=== PATIENT | female | born 1985 | race Caucasian/White ===

== ENCOUNTER 2018-12-24 03:00 | Inpatient (IN) ==
[2018-12-24] MEDS ORDERED: Acetaminophen 325 MG TABLET PO PRN (03:14)
[2018-12-24] MEDS ORDERED: *HR* LORazepam 2 MG/ML VIAL IM PRN (03:14)
[2018-12-24] MEDS ORDERED: Haloperidol Lactate 5 MG/ML VIAL IM PRN (03:14)
[2018-12-24] MEDS ORDERED: traZODone 50 MG TABLET PO PRN (03:14)
[2018-12-24] MEDS ORDERED: Mag Hydrox/Al Hydrox/Simeth 30 ML UDC PO PRN (03:14)
[2018-12-24] MEDS ORDERED: *HR* LORazepam 1 MG TABLET PO PRN (03:14)
[2018-12-24] MEDS ORDERED: MOM Conc 10 ML UD.LIQ PO PRN (03:14)
[2018-12-24] MEDS: Nicotine 21 MG PATCH.TD24 TD SCH (10:49)
[2018-12-24] MEDS: BuPROPion XL (24 HR) 150 MG TABLET PO SCH (11:38)
[2018-12-24] MEDS: Venlafaxine XR (24 HR) 37.5 MG CAP.ER.24H PO SCH (11:38)
[2018-12-24] MEDS: clonazePAM 0.5 MG TABLET PO PRN (11:39)
[2018-12-24] MEDS: hydrOXYzine pamoate 25 MG CAPSULE PO PRN ×2 (17:01→23:01)
[2018-12-24] MEDS: MAVYRET PO SCH (18:59)
[2018-12-25] MEDS: clonazePAM 0.5 MG TABLET PO PRN ×3 (00:34→23:28)
[2018-12-25] MEDS ORDERED: MAVYRET PO SCH (09:00)
[2018-12-25] MEDS: BuPROPion XL (24 HR) 150 MG TABLET PO SCH (09:34)
[2018-12-25] MEDS: MAVYRET PO SCH (09:36)
[2018-12-25] MEDS: Nicotine 21 MG PATCH.TD24 TD SCH (09:37)
[2018-12-25] MEDS: lamoTRIgine 100 MG TABLET PO SCH (12:32)
[2018-12-25] MEDS: hydrOXYzine pamoate 25 MG CAPSULE PO PRN (23:28)
[2018-12-26] MEDS: Venlafaxine XR (24 HR) 37.5 MG CAP.ER.24H PO SCH (08:47)
[2018-12-26] MEDS: BuPROPion XL (24 HR) 150 MG TABLET PO SCH (08:47)
[2018-12-26] MEDS: lamoTRIgine 100 MG TABLET PO SCH (08:47)
[2018-12-26] MEDS: MAVYRET PO SCH (08:48)
[2018-12-26] MEDS: Nicotine 21 MG PATCH.TD24 TD SCH (08:49)
[2018-12-26] MEDS ORDERED: FLU Vac QV 19-20 (6Month+)/PF 0.5 ML SYRINGE IM ONE (09:26)
[2018-12-26 09:33] VITALS: BP 119/80
[2018-12-26] MEDS ORDERED: clonazePAM 1 MG TABLET PO PRN (09:49)
[2018-12-26] MEDS: hydrOXYzine pamoate 25 MG CAPSULE PO PRN (10:50)
== END 2018-12-26 12:10 | disposition home or self-care (01) | DRG 885 ==
LOC: 1ANU 03:00 → SUATTDRO 03:00
PROVIDERS: ADMIT Psychiatry & Neurology Psychiatry; ATTEND Psychiatry & Neurology Psychiatry